=== PATIENT | female | born 1960 | race African-American/Black ===

== ENCOUNTER 2023-01-18 16:50 | Emergency (ER) | payer OTHER, SELFPAY ==
--- NOTE | ~2023-01-18 | XR_ITS ---
EXAMINATION: XR chest 2V DATE: 01/18/2023 18:12 INDICATION: Left-sided rib pain TECHNIQUE: PA and lateral views of the chest were obtained. COMPARISON: None FINDINGS: The lungs are clear with no focal airspace opacities, pulmonary edema, pleural effusion or pneumothor ax. Cardiomegaly. Minimally displaced age-indeterminate posterolateral left eighth rib fracture. 7 mm calcification projecting over the medial right upper quadrant which could represent a gallstone, humera al stone or calcified granuloma. Mild pectus excavatum. Moderate thoracic spondylosis. IMPRESSION: 1. No acute cardiopulmonary disease. 2. Age-indeterminate posterolateral left eighth rib fracture. Correlate for point tenderness at this location. Reviewed, dictated and finalized at location A. IMPRESSION: 1. No acute cardiopulmonary disease. 2. Age-indeterminate posterolateral left eighth rib fracture. Correlate for poi nt tenderness at this location.
[2023-01-18 16:52] VITALS: BP 134/60; PULSE 93; RESP 18; TEMP 36.8; O2SAT 100
--- NOTE | 2023-01-18 17:38 | ED.GENADULT ---
HPI - General Adult General Chief complaint: Unspecified Stated complaint: left side pain Time Seen by Provider: 01/18/23 17:16 History of Present Illness HPI narrative: Patient is a 62-year-old female here for evaluation of left-sided rib pain x2 weeks. Patient states the pain is worse when she pushes on the area and with certain positions of her thorax. Pain came on after she had a mammogram where she had her left arm above her head for long period of time. States that the device was pushing into her side and it is sore where it was doing so. She denies any cough, nasal congestion, chest pain, vomiting. She tried an Advil for pain but states it made her nauseated. Reports urinary frequency but no burning with urination, fevers, blood in her urine. Related Data Home Medications Medication Instructions Recorded Confirmed losartan 50 mg tablet mg 01/18/23 methimazole 5 mg tablet mg 01/18/23 01/18/23 Allergies Allergy/AdvReac Type Severity Reaction Status Date / Time No Known Allergies Allergy Verified 01/18/23 16:51 Review of Systems Review of Systems: Gen.: Denies fevers or chills Eyes: Denies eye pain or visual change ENT: Denies congestion Respiratory: Denies shortness of breath or cough CV: Denies chest pain or palpitations GI: Denies abdominal pain nausea, emesis or diarrhea denies burning, urgency, frequency or hematuria Musculoskeletal: Reports left side pain Neuro: Denies numbness, tingling, weakness or focal weakness Skin: Denies rash Except as documented, all other systems reviewed and negative Exam Narrative: APPEARANCE: Well appearing, no pain in distress, well-nourished. Head: Normocephalic and atraumatic. EYES: PERRLA/EOMI, conjunctivae clear NOSE: No nasal drainage EARS: External ear normal in appearance THROAT: Oropharynx is clear. Mucous membranes are moist. NECK: Supple. No adenopathy, no masses. RESPIRATORY: Diminished breath sounds throughout. CARDIOVASCULAR: Regular rate and rhythm without murmurs, rubs, or gallops. ABDOMINAL: Normoactive bowel sounds. Soft, nontender, nondistended. No rebound tenderness or guarding. MUSCULOSKELETAL: There is tenderness to palpation along the left inferior ribs. Extremities are warm and well-perfused. Moves all extremities well. No edema. NEURO: Normal speech. No focal neurologic deficits. SKIN: Skin is warm and dry. No rashes. PSYCHIATRIC: Normal affect/mood.. Course Vital Signs Vital signs: Vital Signs Temperature 98.3 F 01/18/23 16:52 Pulse Rate 93 01/18/23 16:52 Respiratory Rate 18 01/18/23 16:52 Blood Pressure 134/60 01/18/23 16:52 Pulse Oximetry 100 01/18/23 16:52 Oxygen Delivery Room Air 01/18/23 16:52 Temperature 98.3 F 01/18/23 16:52 Pulse Rate 93 01/18/23 16:52 Respiratory Rate 18 01/18/23 16:52 Blood Pressure 134/60 01/18/23 16:52 Pulse Oximetry 100 01/18/23 16:52 Oxygen Delivery Room Air 01/18/23 16:52 Medical Decision Making MDM Narrative Medical decision making narrative: 62-year-old female here for evaluation of left-sided rib pain x2 weeks with tenderness to palpation over the left eighth rib. No flail chest deformity. There is evidence of an age-indeterminate rib fracture on the left eighth rib on CXR. This likely explains patient's pain. Patient does not recall any direct trauma to the thorax but she did have a mammogram prior to onset of pain and believes it may be due to that. Also complaining of slight urinary frequency; UA is clear. Patient feeling improved after Lidoderm patch, will send home with incentive spirometer, declines other pain meds in the ED. Discussed return precautions and she voiced understanding. Vital Signs Vital Signs: Vital Signs Temperature 98.3 F 01/18/23 16:52 Pulse Rate 93 01/18/23 16:52 Respiratory Rate 18 01/18/23 16:52 Blood Pressure 134/60 01/18/23 16:52 Pulse Oximetry 100 01/18/23 16:52 Oxygen Delivery Room
[2023-01-18] MEDS: LIDOCAINE 5% PATCH 1 PATCH TRANSDERM (17:56)
[2023-01-18 18:08] LABS: Appearance Urine Clear (Clear); Bilirubin Urine Negative (Negative); Blood Urine Negative (Negative); Color Urine Yellow (Yellow); Glucose Urine UA Negative (Negative); Ketones Urine Negative (Negative); Leukocyte Esterase Ur Negative LEU/UL (Negative); Nitrate Urine Negative (Negative); Protein Urine Negative (Negative); Specific Grav Ur 1.005 (1.001-1.035); Urobilinogen Urine 0.2 mg/dL (<2.0); pH Urine 6.5 (5.0-9.0)
[2023-01-18 18:19] LABS: Add Urine Microscopic? NO
== END 2023-01-18 19:11 | disposition home or self-care (01) ==
PROVIDERS: Emergency Provider Physician Assistant; PCP Family Medicine
DX: S22.32XA Fracture of one rib, left side, initial encounter for closed fracture (principal); W22.8XXA Striking against or struck by other objects, initial encounter
CPT/HCPCS: 71046; 81003; 99283; A9270

== ENCOUNTER 2023-01-31 12:45 | Emergency (ER) | payer OTHER, SELFPAY ==
--- NOTE | ~2023-01-31 | CT_ITS ---
EXAMINATION: CT chest abdomen pelvis wo con DATE: 01/31/2023 16:18 INDICATION: Possible metastatic disease of the left femur on hip radiographs TECHNIQUE: Transaxial computed tomographic images of the chest, abdomen, and pelvis were obtained wit hout intravenous contrast. The dose-length product (DLP) was 506.06 mGy-cm. Automated exposure contro l and iterative reconstruction technique were employed. COMPARISON: None FINDINGS: CHEST CT: Mild atelectasis of the lungs. The lungs are free of focal airspace opacities. No pleural effusion or pneumothorax. No pathologically enlarged thoracic lymph nodes are identified. The heart size is norm al. There is a 2.2 cm nodule of the left thyroid lobe. Also seen are smaller, round calcified left th yroid nodules. There is a 6 mm mass of the right breast. There is an expansile mass in the anterior a spect of the right third rib with associated pathologic fracture. There is an anterior fracture of th e right fourth rib. There are lytic lesions posteriorly and laterally in the right 10th rib. There is a lytic lesion in the caudal body of the right scapula. There are healing anterior fractures of the left fifth and seventh ribs. There is a lytic lesion in the posterior aspect of the left eighth rib w ith pathologic fracture. ABDOMEN/PELVIS CT: A calcification of the otherwise unremarkable liver likely represent old granulomatous disease. The s pleen, pancreas, gallbladder, and adrenal glands are normal. The kidneys are unremarkable. No patholo gically enlarged abdominal or pelvic lymph nodes are identified. No free intraperitoneal gas or evide nce of bowel obstruction. There is a lytic lesion of the left femoral neck and proximal femur is note d on today's radiograph. There is a lytic lesion of the left sacrum at the S1 and S2 levels. There ap pear to be multiple additional smaller lytic lesions in several vertebral bodies. IMPRESSION: 1. Widespread osseous lytic lesions as described above, some of which demonstrate pathologic fracture in the ribs, consistent with multiple myeloma versus metastatic disease. 2. Small right breast mass, likely related to osseous findings. Recommend correlation with mammograph y history. Reviewed, dictated and finalized at location F. IMPRESSION: 1. Widespread osseous lytic lesions as described above, some of which demonstra te pathologic fracture in the ribs, consistent with multiple myeloma versus met astatic disease. 2. Small right breast mass, likely related to osseous findings. Recommend corre lation with mammography history.
--- NOTE | ~2023-01-31 | XR_ITS ---
XR hip LT min 3V w AP pelvis DATE: 01/31/2023 14:03 INDICATION: Left groin pain for 3 days. No injury. TECHNIQUE: COMPARISON: None FINDINGS: There is osteopenia. There is an approximately 10 x 16 mm circumscribed lucency with endosteal 6 scalloping of the medial cortex of the base of the left femoral neck. No other apparent lytic defect is noted. Mild bilateral hip osteoarthritis. The pubic symphysis and sacral iliac joints are intact. No pelvic fracture or left hip fracture or dislocation is noted. IMPRESSION: 10 by 16mm circumscribed lucent defect with endosteal cortical scalloping at the medial b ase the left femoral neck. Differential diagnosis includes myeloma, metastasis. Consider further eval uation with radial nuclide bone scan and/or MR pelvis. Reviewed, dictated and finalized at location [] IMPRESSION: 10 by 16mm circumscribed lucent defect with endosteal cortical scal loping at the medial base the left femoral neck. Differential diagnosis include s myeloma, metastasis. Consider further evaluation with radial nuclide bone sca n and/or MR pelvis.
[2023-01-31 12:55] VITALS: BP 140/64; PULSE 87; RESP 16; TEMP 36.7; O2SAT 100
--- NOTE | 2023-01-31 13:17 | ED.LOWEXIN ---
HPI - Extremity Injury (Lower) General Chief Complaint: Extremity Injury, Lower Stated Complaint: R. leg pain Time Seen by Provider: 01/31/23 13:17 Source: patient and family Mode of arrival: ambulatory Limitations: no limitations History of Present Illness HPI Narrative: 62 YEARS OLD WHITE FEMALE COMPLAINING OF LEFT GROIN THROBBING PAIN, INTERMITTENT, BETTER WITH ICE, SLIGHTLY WORSE WITH WALKING. SHE DENIES ANY FEVER, CHILLS, NAUSEA, VOMITING, ABDOMINAL PAIN, LOWER BACK PAIN, NUMBNESS OR TINGLING OR FOCAL NEURO DEFICIT OR HAVING SIMILAR SYMPTOMS IN THE PAST. HISTORY OF HYPERTENSION, HYPOTHYROIDISM. Related Data Home Medications Medication Instructions Recorded Confirmed losartan 50 mg tablet mg 01/18/23 methimazole 5 mg tablet mg 01/18/23 01/18/23 Allergies Allergy/AdvReac Type Severity Reaction Status Date / Time No Known Allergies Allergy Verified 01/18/23 16:51 Review of Systems Review of Systems: All systems reviewed & are unremarkable except as noted in HPI and below Exam Narrative: GENERAL APPEARANCE: WELL-DEVELOPED, WELL-NOURISHED SKIN: NORMAL COLOR HEAD: NORMOCEPHALIC, NONTRAUMATIC EYES: CLEAR CONJUNCTIVA ENT: OROPHARYNX NORMAL, EARS NORMAL, NOSE NORMAL NECK: SUPPLE, NONTENDER CHEST AND RESPIRATORY: AIRWAY PATENT, NO RESPIRATORY DISTRESS, NO ACCESSORY MUSCLE USE HEART: REGULAR RATE/RHYTHM ABDOMEN: SOFT, NONTENDER, NO ORGANOMEGALY, QUIET BOWEL SOUNDS VASCULAR: NORMAL PERIPHERAL PULSES, NORMAL CAPILLARY REFILL. MUSCULOSKELETAL: SLIGHT DIFFUSE TENDERNESS IN THE LEFT GROIN, AND LEFT UPPER THIGH ANTERIORLY AND MEDIALLY, NO LYMPHADENOPATHY, NO MASSES, NO RASH NO WARMTH. PAIN IS WORSE WITH BENDING LEFT HIP. NEUROLOGIC: ALERT AND ORIENTED ?3, LOCKER ROOM ATTENDANT IS NORMAL TESTED, NO GROSS MOTOR DEFICIT Course Reevaluation(s) Reevaluation #1: PATIENT FEELING MUCH BETTER AFTER IBUPROFEN AND NORCO. Date: 01/31/23 Time: 13:40 Consultations Consultation #1: Dr. Contreras Date: 01/31/23 Time: 18:06 Vital Signs Vital signs: Vital Signs Temperature 36.7 C 01/31/23 12:55 Pulse Rate 87 01/31/23 12:55 Respiratory Rate 16 01/31/23 12:55 Blood Pressure 140/64 01/31/23 12:55 Pulse Oximetry 100 01/31/23 12:55 Oxygen Delivery Room Air 06/09/23 12:55 Temperature 36.7 C 01/31/23 12:55 Pulse Rate 87 01/31/23 12:55 Respiratory Rate 16 01/31/23 12:55 Blood Pressure 140/64 01/31/23 12:55 Pulse Oximetry 100 01/31/23 12:55 Oxygen Delivery Room Air 01/31/23 12:55 MDM - Extremity Injury (Lower) Lab Data 01/31/23 15:15 01/31/23 15:15 Labs: Lab Results 01/31/23 01/31/23 Range/Units 15:15 17:04 WBC 6.7 (4.5-10.0) K/mm3 RBC 2.72 L (4.2-5.4) M/mm3 Hgb 8.2 L (12.0-15.0) g/dL Hct 24.6 L (37.0-47.0) % MCV 90.4 (80-100) fl MCH 30.1 (26-34) pg MCHC 33.3 (32-36) g/dl RDW 13.4 (11.5-14.5) % Plt Count 187 (150-375) k/mm3 MPV 9.3 (7.4-10.4) fl Immature Gran % (Auto) 0.4 (0-0.5) % Neut % (Auto) 53.2 (45.5-73.1) % Lymph % (Auto) 31.5 (18.3-44.2) % Wheeler % (Auto) 12.2 H (2.6-8.5) % Eos % (Auto) 2.4 (0-4.4) % Baso % (Auto) 0.3 (0.2-1.2) % Lymph # (Auto) 2.12 (0.9-3.2) K/mm3 Wheeler # (Auto) 0.8 H (0.1-0.6) K/mm3 Eos # (Auto) 0.2 (0-0.3) K/mm3 Baso # (Auto) 0.0 (0.0-0.1) K/mm3 Abs Immat Gran (auto) 0.03 (0.00-0.031) K/mm3 Absolute Neuts (auto) 3.6 (1.3-6.7) K/mm3 Absolute Nucleated RBC 0.0 (0.0-0.012) K/mm3 Nucleated RBC % 0.0 (0.0-0.2) % Sodium 138 (137-145) mmol/L Potassium 3.7 (3.4-5.0) mmol/L Chloride 100 (98-107) mmol/L Carbon Dioxide 32 H (22-30) mmol/L Anion
[2023-01-31] MEDS: HYDROcodone/acetaminophen (*CRX) 5-325 MG TABLET 1 TAB PO (13:41)
[2023-01-31] MEDS: IBUPROFEN 600 MG TABLET PO (13:41)
[2023-01-31 15:23] LABS: Basophils Percent Auto 0.3 % (0.2-1.2); Eosinophils Absolute Auto 0.2 K/mm3 (0-0.3); Eosinophils Percent Auto 2.4 % (0-4.4); Hematocrit 24.6 % (37.0-47.0); Hemoglobin 8.2 g/dL (12.0-15.0); Immature Granulocyte Absolute 0.03 K/mm3 (0.00-0.031); Immature Granulocyte Percent A 0.4 % (0-0.5); Lymphocytes Absolute Auto 2.12 K/mm3 (0.9-3.2); Lymphocytes Percent Auto 31.5 % (18.3-44.2); Mean Corpuscular HGB Conc 33.3 g/dl (32-36); Mean Corpuscular Hemoglobin 30.1 pg (26-34); Mean Corpuscular Volume 90.4 fl (80-100); Mean Platelet Volume 9.3 fl (7.4-10.4); Monocytes Absolute Auto 0.8 K/mm3 (0.1-0.6); Monocytes Percent Auto 12.2 % (2.6-8.5); Neutrophils Absolute Auto 3.6 K/mm3 (1.3-6.7); Neutrophils Percent Auto 53.2 % (45.5-73.1); Platelet Count Result 187 k/mm3 (150-375); Red Blood Count 2.72 M/mm3 (4.2-5.4); Red Cell Distribution Width 13.4 % (11.5-14.5); White Blood Count 6.7 K/mm3 (4.5-10.0)
[2023-01-31 15:39] LABS: Alanine Aminotransferase 30 U/L (6-35); Albumin Level 4.7 g/dL (3.5-5.1); Alkaline Phosphatase 82 U/L (38-126); Anion Gap 6 mmol/L (8-16); Aspartate Amino Transferase 28 U/L (14-36); Bilirubin,Total 0.8 mg/dL (0.2-1.3); Blood Urea Nitrogen 27 mg/dL (7-17); Carbon Dioxide 32 mmol/L (22-30); Chloride 100 mmol/L (98-107); Estimated CRCL calculation 19 ml/min; Estimated Glomerular Filt Rate 25; Glucose 92 mg/dL (65-110); Potassium 3.7 mmol/L (3.4-5.0); Sodium 138 mmol/L (137-145)
[2023-01-31 15:47] LABS: Calcium 15.4 mg/dL (8.4-10.2)
[2023-01-31] MEDS: SODIUM CHLORIDE 0.9% IV 1,000 ML 999 ML IV CONT (16:27)
[2023-01-31 17:29] LABS: Appearance Urine Clear (Clear); Bacteria Urine None Seen /hpf; Bilirubin Urine Negative (Negative); Blood Urine Negative (Negative); Color Urine Yellow (Yellow); Glucose Urine UA Negative (Negative); Ketones Urine Negative (Negative); Leukocyte Esterase Ur Negative LEU/UL (Negative); Need Manual Microscopic Reviewed; Nitrate Urine Negative (Negative); Protein Urine 1+ mg/dL (Negative); RBC Urine 0-2 /hpf (0-2); Specific Grav Ur 1.012 (1.001-1.035); Squamous Epithelial Cell Urine Occasional /hpf (Few); Urobilinogen Urine 0.2 mg/dL (<2.0); pH Urine 5.5 (5.0-9.0)
[2023-01-31 17:30] LABS: Add Urine Microscopic? YES
== END 2023-01-31 18:37 | disposition left against medical advice (07) ==
PROVIDERS: Emergency Provider Emergency Medicine; PCP Family Medicine
DX: C79.51 Secondary malignant neoplasm of bone (principal); N63.10 Unspecified lump in the right breast, unspecified quadrant; E83.52 Hypercalcemia; C80.1 Malignant (primary) neoplasm, unspecified; I10 Essential (primary) hypertension; E03.9 Hypothyroidism, unspecified; M84.58XA Pathological fracture in neoplastic disease, other specified site, initial encounter for fracture
CPT/HCPCS: 36415; 71250; 73502; 74176; 80053; 81001; 85025; 87086; 96360; 99284; A9270; J7030

== ENCOUNTER 2023-02-12 08:57 | Emergency (ER) | payer OTHER, SELFPAY ==
[2023-02-12 09:06] VITALS: BP 141/68; PULSE 114; RESP 18; O2SAT 99
--- NOTE | 2023-02-12 09:12 | ED_ITS ---
HPI - Skin/Abscess/Foreign Bdy General Chief complaint: Back Pain/Injury Stated complaint: Lower back pain/rash Time Seen by Provider: 02/12/23 09:03 History of Present Illness HPI narrative: Patient is a 62-year-old female who presents ER with pain around her buttocks/sacrum. She reports it began 2 days ago. She began develop a rash and applied topical hydrocortisone. It has not improved. No radiation down the leg. Patient also reports some back pain. She recently broke a rib on the left side is now having some achiness on the right side. No pain with deep breath. No numbness or tingling. No additional trauma. Related Data Home Medications Medication Instructions Recorded Confirmed losartan 50 mg tablet mg 01/18/23 methimazole 5 mg tablet mg 01/18/23 01/18/23 Allergies Allergy/AdvReac Type Severity Reaction Status Date / Time No Known Allergies Allergy Verified 01/18/23 16:51 Review of Systems Constitutional: Constitutional: Denies chills and Denies fever(s) Musculoskeletal: Musculoskeletal: Reports back pain, Denies arthralgias and Denies joint swelling Integumentary/Breasts: Skin/Breast: Denies erythema and Reports rash Comments: Blisters Neurologic: Denies focal weakness and Denies numbness Exam Narrative: GENERAL: Well-appearing, well-nourished, and in no acute distress. HEAD: Normocephalic, atraumatic. CHEST: Clear to auscultation. No respiratory distress. Back: No midline tenderness of the T/L-spine. No reproducible paraspinal muscular tenderness. EXTREMITIES: Normal range of motion. No edema. SKIN: Warm, dry. Shingles rash to the right buttock extending from the gluteal cleft. NEURO: Alert and oriented x3. PSYCH: Normal mood and affect. Course Course Emergency Course: Patient educated on diagnosis and treatment plan. Patient verbalized understanding. Discharge home with valacyclovir and [place]. Discharge Plan Discharge Clinical Impression: Shingles Patient Disposition: Home, Self-Care Condition: Stable Instructions: Shingles (ED) Additional Instructions: Return the ER if you develop a rash on your face, you have fever over 100.4 ?F, or you have additional concerns. Prescriptions: New valacyclovir 1 gram tablet 1,000 mg PO Q8H 7 Days Qty: 21 0RF hydrocodone-acetaminophen 5-325 mg tablet 1 tablet PO Q6H PRN (Reason: pain) Qty: 14 0RF No Action losartan 50 mg tablet methimazole 5 mg tablet lidocaine [Lidoderm] 5 % adhesive patch,medicated 1 patch topical DAILY Qty: 30 0RF Rx Instructions: leave on most painful area for up to 12 hrs Follow-up/Referrals: UNKNOWN,DOCTOR [Non-Staff] - 1 Week
== END 2023-02-12 09:25 | disposition home or self-care (01) ==
LOC: ANHED 09:15
PROVIDERS: Emergency Provider Emergency Medicine; PCP Physician Assistant
DX: B02.9 Zoster without complications (principal)
CPT/HCPCS: 99283

== ENCOUNTER 2023-02-17 13:38 | Emergency (ER) | payer OTHER, SELFPAY ==
--- NOTE | 2023-02-17 13:51 | PC.NURSE ---
Patient and family wanting to know if she will be released by 1600 because that is when she has a doctor's apt. It was explained that we cannot guarantee an exact time for release. They were wanting levels drawn , but it was explained that even if we draw blood in triage results cannot be released until she is seen by a provider. Patient and family opt to come back at a later time. Patient out of dept in no distress.
== END 2023-02-17 13:51 | disposition left against medical advice (07) ==
LOC: ANHED 13:56
PROVIDERS: PCP Physician Assistant
DX: Z53.21 Procedure and treatment not carried out due to patient leaving prior to being seen by health care provider (principal)
CPT/HCPCS: 99199

== ENCOUNTER 2023-02-18 12:32 | Emergency (ER) | payer OTHER, SELFPAY ==
[2023-02-18] VITALS (11 sets, daily range): BP systolic 132–155; BP diastolic 56–72; PULSE 80–124; RESP 15–31; TEMP 37; O2SAT 98–100
--- NOTE | ~2023-02-18 | CT_ITS ---
EXAMINATION: CT brain wo con DATE: 02/18/2023 14:09 INDICATION: right forehead knot . TECHNIQUE: Computed tomography (CT) of the head was performed without intravenous contrast. The mA wa s adjusted according to patient size. Iterative reconstruction technique was employed. The dose-lengt h product was 983.67 mGy-cm. COMPARISON: None. FINDINGS: No acute intracranial hemorrhage or extra-axial fluid collection. No hydrocephalus, mass, or herniation. No acute ischemic infarct. Unremarkable dural venous sinus attenuation. No acute osseous fracture. Multiple variably sized lytic lesions in the skull ranging from subcentime ter up to 3.0 cm. The knot referred to in the right forehead corresponds directly to a 2.6 cm lytic lesion with an associated soft tissue mass is exerting gentle local mass effect in the right frontal lobe, without significant edema. None of the lesions have significant periosteal change. The aerated spaces are clear. IMPRESSION: No acute intracranial process. Innumerable lucent lesions in the skull, likely representing metastati c lesions or multiple myeloma. Reviewed, dictated and finalized at location K. IMPRESSION: No acute intracranial process. Innumerable lucent lesions in the skull, likely representing metastatic lesions or multiple myeloma.
--- NOTE | ~2023-02-18 | CT_ITS ---
EXAMINATION: CT thoracic spine wo con DATE: 02/18/2023 14:09 INDICATION: back pain, multiple myeloma . TECHNIQUE: Computed tomography (CT) of the thoracic spine was performed without intravenous contrast. Automated exposure control and iterative reconstruction technique were employed. The dose-length pro duct was 826.60 mGy-cm. COMPARISON: CT chest abdomen and pelvis 01/31/2023 FINDINGS: THORACIC SPINE: Vertebral body alignment intact. Vertebral body heights preserved. Multilevel mild disc space narrowi ng and marginal osteophytosis. Multilevel mild facet sclerosis and hypertrophy. No severe central can al or neural foraminal narrowing. Innumerable, punched-out, lytic lesions in the vertebral bodies and ribs. No traumatic malalignment or fracture. Visualized lung parenchyma is clear. Nonobstructing lef t renal calcifications. Coarse, likely granulomatous calcification in the liver. Mild cardiomegaly. M ultiple calcified and noncalcified thyroid nodules. IMPRESSION: No acute fracture or traumatic malalignment of the thoracic spine. No significant interval change fro m the prior examination. Widespread osseous lytic lesions lesions consistent with multiple myeloma versus osseous metastases. Multiple thyroid nodules, consider nonemergent, outpatient thyroid ultrasound for further characteriz ation. Reviewed, dictated and finalized at location K. IMPRESSION: No acute fracture or traumatic malalignment of the thoracic spine. No significa nt interval change from the prior examination. Widespread osseous lytic lesions lesions consistent with multiple myeloma versu s osseous metastases. Multiple thyroid nodules, consider nonemergent, outpatient thyroid ultrasound f or further characterization.
[2023-02-18] MEDS: SODIUM CHLORIDE 0.9% IV 1,000 ML 999 ML IV CONT ×2 (14:23→15:25)
[2023-02-18 14:35] LABS: Basophils Absolute Auto 0.1 K/mm3 (0.0-0.1); Basophils Percent Auto 0.7 % (0.2-1.2); Eosinophils Absolute Auto 0.2 K/mm3 (0-0.3); Eosinophils Percent Auto 1.3 % (0-4.4); Hematocrit 28.3 % (37.0-47.0); Hemoglobin 9.4 g/dL (12.0-15.0); Immature Granulocyte Absolute 0.18 K/mm3 (0.00-0.031); Immature Granulocyte Percent A 1.5 % (0-0.5); Lymphocytes Absolute Auto 3.37 K/mm3 (0.9-3.2); Lymphocytes Percent Auto 28.9 % (18.3-44.2); Mean Corpuscular HGB Conc 33.2 g/dl (32-36); Mean Corpuscular Hemoglobin 29.9 pg (26-34); Mean Corpuscular Volume 90.1 fl (80-100); Mean Platelet Volume 9.5 fl (7.4-10.4); Monocytes Absolute Auto 2.5 K/mm3 (0.1-0.6); Monocytes Percent Auto 21.8 % (2.6-8.5); Neutrophils Absolute Auto 5.3 K/mm3 (1.3-6.7); Neutrophils Percent Auto 45.8 % (45.5-73.1); Platelet Count Result 188 k/mm3 (150-375); Red Blood Count 3.14 M/mm3 (4.2-5.4); Red Cell Distribution Width 14.6 % (11.5-14.5); White Blood Count 11.7 K/mm3 (4.5-10.0)
[2023-02-18 14:40] LABS: Alanine Aminotransferase 40 U/L (6-35); Albumin Level 5.4 g/dL (3.5-5.1); Alkaline Phosphatase 119 U/L (38-126); Anion Gap 12 mmol/L (8-16); Aspartate Amino Transferase 30 U/L (14-36); Blood Urea Nitrogen 26 mg/dL (7-17); Calcium 10.4 mg/dL (8.4-10.2); Carbon Dioxide 25 mmol/L (22-30); Chloride 101 mmol/L (98-107); Estimated CRCL calculation 41 ml/min; Estimated Glomerular Filt Rate > 60; Glucose 100 mg/dL (65-110); Potassium 5.5 mmol/L (3.4-5.0); Sodium 138 mmol/L (137-145)
--- NOTE | 2023-02-18 14:44 | ECG_ITS ---
Measurements Intervals [place] Rate: 111 P: 50 [place]: 124 QRS: -3 QRSD: 66 T: 27 QT: 316 QTc: 431 Interpretive Statements SINUS TACHYCARDIA OTHERWISE NORMAL ECG NO PREVIOUS ECG AVAILABLE FOR COMPARISON Electronically Signed On 02-19-2023 11:52:18 CDT by Antione Frausto M.D.
[2023-02-18 15:03] LABS: Platelet Estimate Adequate (Adequate)
[2023-02-18 15:04] LABS: Anisocytosis 1+ (NORMAL); Atypical Lymphocytes Present; Hypochromasia 1+ (NORMAL); Schistocytes None Seen (NORMAL)
--- NOTE | 2023-02-18 15:28 | ED.BACK ---
HPI - Back Pain/Injury General Chief Complaint: Back Pain/Injury Stated Complaint: back pain Time Seen by Provider: 02/18/23 13:13 Source: patient, family and RN notes reviewed Mode of arrival: ambulatory Limitations: no limitations History of Present Illness HPI Narrative: This is a 62 year old female with recent diagnosis of multiple myeloma who presents for evaluation of back pain and right forehead knot. Patient was discharged from [facility] over 10 days after diagnosis of multiple myeloma via biopsy and lab test. She states she was arranged to have chemotherapy at [place] but they did not cover radiation. She is on the waiting list to go to [facility] for treatment. They brought patient to ER to have her calcium levels checked. They also noticed small knot to patient's right forehead over the past 2 days. Patient denies pain, nausea, or vomiting. She was reports mild back pain that has resolved. She denies chest pain or shortness of breath. Related Data Home Medications Medication Instructions Recorded Confirmed losartan 50 mg tablet mg 01/18/23 methimazole 5 mg tablet mg 01/18/23 01/18/23 Allergies Allergy/AdvReac Type Severity Reaction Status Date / Time No Known Allergies Allergy Verified 02/18/23 12:39 Review of Systems Review of Systems: All systems reviewed & are unremarkable except as noted in HPI and below Constitutional: Constitutional: Denies weakness Cardiovascular: Cardiovascular: Denies syncope, Denies rapid heart rate, Denies irregular heart rhythm, Denies leg edema and Denies dyspnea Respiratory: Respiratory: Denies chest congestion, Denies hemoptysis, Denies excessive phlegm production and Denies dyspnea Gastrointestinal: Gastrointestinal: Denies abdominal pain, Denies hematochezia, Denies diarrhea and Denies vomiting Genitourinary: Genitourinary: Denies hematuria and Denies dysuria Musculoskeletal: Musculoskeletal: Reports back pain, Denies joint swelling, Denies loss of height and Denies muscle weakness Neurologic: Denies syncope, Denies focal weakness and Denies weakness PMFSH Past Medical History Medical History (Updated 02/18/23 @ 16:57 by Kaitlyn Salazar MD) Hypertension Multiple myeloma Exam Const: General: no acute distress and alert Nutritional Appearance: well nourished Orientation/consciousness: patient oriented x3 HENMT: Face and sinus: normal facial exam and sinuses nontender Mouth: Yes Normal oral and palatal mucosa present, Yes lip normal and Yes moist mucous membranes Throat: posterior oropharynx normal and uvula midline Other: right eyebrow swelling, firm, no erythema, no tenderness Eyes: Pupils: Equal, round and reactive pupils present EOM: EOMs intact bilaterally Neck: Neck: normal visual inspection Chest: Chest palpation & inspection: normal inspection of the chest Resp: Effort & Inspection: normal respiratory effort Auscultation: clear to auscultation bilaterally Cardio: Rate: tachycardic Rhythm: regular rhythm Heart sounds: no murmurs GI: GI Palp: Yes Soft to palpation, No Tenderness to palpation present (GI), No Guarding due to palpation present (GI) and No Rigid due to palpation Auscultation: normal bowel sounds Back/Spine/Pelvis: Thoracic/Lumbar Spine: thoracic and lumbar spine normal to inspection Skin: General skin exam: normal color Rashes: no rashes Wounds: no wounds Neuro: General: patient oriented x3, moves all extremities and CN's II-XI intact bilaterally Cranial nerves: Yes Nystagmus not present Speech: normal speech Gait exam (Neuro): Normal gait present Extrem: General: normal to inspection Psych: Mental Status: mental status grossly normal Affect: normal affect Attitude: cooperative Course Reevaluation(s) Reevaluation #1: I have reviewed with patient and family that anemia is stable. She denies chest pain or shortness of breath. Patient wants to go home. I initially discuss with patient and family
== END 2023-02-18 17:36 | disposition home or self-care (01) ==
PROVIDERS: Emergency Provider General Practice; PCP Physician Assistant
DX: C90.00 Multiple myeloma not having achieved remission (principal); I10 Essential (primary) hypertension
CPT/HCPCS: 36415; 70450; 72128; 80053; 84132; 85025; 93005; 96360; 96361; 99284; J7030

== ENCOUNTER 2023-02-26 18:38 | Emergency (ER) | payer OTHER, SELFPAY ==
[2023-02-26 18:40] VITALS: BP 126/48; PULSE 94; RESP 16; TEMP 36.3; O2SAT 100
[2023-02-26] MEDS: HYDROcodone/acetaminophen (*CRX) 5-325 MG TABLET 1 TAB PO (20:13)
[2023-02-26] MEDS: ONDANSETRON HCL ODT 4 MG TABLET PO (20:13)
--- NOTE | 2023-02-26 20:28 | ED.GENADULT ---
HPI - General Adult General Chief complaint: Urogenital-Female Stated complaint: pelvic pain Time Seen by Provider: 02/26/23 19:46 History of Present Illness HPI narrative: Patient is a 62-year-old female who presents ER with left leg pain. Reports its been ongoing over the last couple of weeks. Recent diagnosis of multiple myeloma. She is about to receive radiation therapy due to the lytic lesion in her leg. She just finished her steroids yesterday and pain is returned. She has been at the outside hospital they gave her Toradol injection and then her PCP gave her prescription for tramadol. The tramadol took 45 minutes to work prior to the arrival to the ER. Pain decreased but still present. Patient has also taken a muscle relaxer.. No recent trauma or fall. No new rash. Patient was recently diagnosed with shingles but the rash has gone away. Related Data Home Medications Medication Instructions Recorded Confirmed losartan 50 mg tablet mg 01/18/23 methimazole 5 mg tablet mg 01/18/23 01/18/23 Allergies Allergy/AdvReac Type Severity Reaction Status Date / Time No Known Allergies Allergy Verified 02/18/23 12:39 Review of Systems Constitutional: Constitutional: Denies chills, Denies fatigue and Denies fever(s) Genitourinary: Genitourinary: Denies nocturia, Denies genital lesions and Denies pelvic pain Musculoskeletal: Musculoskeletal: Denies arthralgias and Denies joint swelling Comments: Left leg pain Integumentary/Breasts: Skin/Breast: Denies erythema and Denies rash PMFSH Past Medical History Medical History (Updated 02/26/23 @ 20:36 by Otoniel Jay MD) Hypertension Multiple myeloma Surgical History Surgical History (Updated 02/26/23 @ 20:30 by Otoniel Jay MD) No pertinent past surgical history Exam Narrative: GENERAL: Well-appearing, well-nourished, and in no acute distress. HEAD: Normocephalic, atraumatic. CHEST: Clear to auscultation. No respiratory distress. HEART: Regular rate and rhythm. Normal peripheral pulses. EXTREMITIES: Normal range of motion. No edema. No reproducible point tenderness left lower extremity. Normal pulses in the left lower extremity. SKIN: Warm, dry, no rash. NEURO: Alert and oriented x3. PSYCH: Normal mood and affect. Course Course Emergency Course: Patient reports nausea with [place] but discussed that Percocet also has significant side effects. Poor options for pain control beyond tramadol. Patient willing to try [place] with a Zofran ODT. Patient is scheduled for radiation treatments tomorrow does not want to miss the appointment. We will treat with this therapy at home and patient will follow-up with her oncologist and discuss additional treatment. Patient's daughters are present and supportive and verbalized understanding treatment plan. Chart review shows that patient has a femoral head lesion. Vital Signs Vital signs: Vital Signs Temperature 97.3 F L 02/26/23 18:40 Pulse Rate 94 02/26/23 18:40 Respiratory Rate 16 02/26/23 18:40 Blood Pressure 126/48 L 02/26/23 18:40 Pulse Oximetry 100 02/26/23 18:40 Oxygen Delivery Room Air 02/26/23 18:40 Temperature 97.3 F L 02/26/23 18:40 Pulse Rate 94 02/26/23 18:40 Respiratory Rate 16 02/26/23 18:40 Blood Pressure 126/48 L 02/26/23 18:40 Pulse Oximetry 100 02/26/23 18:40 Oxygen Delivery Room Air 02/26/23 18:40 Medical Decision Making Vital Signs Vital Signs: Vital Signs Temperature 97.3 F L 02/26/23 18:40 Pulse Rate 94 02/26/23 18:40 Respiratory Rate 16 02/26/23 18:40 Blood Pressure 126/48 L 02/26/23 18:40 Pulse Oximetry 100 02/26/23 18:40 Oxygen Delivery Room Air 02/26/23 18:40 Temperature 97.3 F L 02/26/23 18:40 Pulse Rate 94 02/26/23 18:40 Respiratory Rate 16 02/26/23 18:40 Blood Pressure 126/48 L 02/26/23 18:40 Pulse Oximetry 100 02/26/23 18:40 Oxygen Delivery Room Air 02/26/23 18:40
[2023-02-26 21:30] VITALS: PULSE 86; RESP 10; O2SAT 99
== END 2023-02-26 22:05 | disposition home or self-care (01) ==
PROVIDERS: Emergency Provider Emergency Medicine; PCP Physician Assistant
DX: M79.605 Pain in left leg (principal); C90.00 Multiple myeloma not having achieved remission; I10 Essential (primary) hypertension
CPT/HCPCS: 99283; A9270